=== PATIENT | female | born 1970 | race Caucasian/White ===

== ENCOUNTER 2021-04-28 15:09 | Emergency (ER) | payer MEDICAID ==
[2021-04-28] MEDS ORDERED: Sodium Chloride 0.9% 1,000 ML IV ONE (15:10)
[2021-04-28] MEDS ORDERED: methylPREDNISolone Sodium Succinate 125 MG/2 ML SDV IVPUSH ONE (15:10)
[2021-04-28] MEDS ORDERED: Famotidine 20 MG/2 ML SDV IVPUSH ONE (15:10)
[2021-04-28] MEDS ORDERED: methylPREDNISolone Sodium Succinate 125 MG/2 ML SDV IM ONE (15:15)
[2021-04-28] MEDS ORDERED: Famotidine 20 MG Tab PO ONE (15:15)
--- NOTE | 2021-04-28 16:34 | EDM.PDOC ---
ED HPI GENERAL MEDICAL PROBLEM - General Chief Complaint: Allergic Reaction Stated Complaint: ALLLERGIC REACTION Time Seen by Provider: 04/28/21 15:12 Source of Information: Reports: Patient, RN, RN Notes Reviewed History Limitations: Reports: No Limitations - History of Present Illness INITIAL COMMENTS - FREE TEXT/NARRATIVE: Susana is a 50 y/o female with a history of allergy to bee venom who presents to the ED via personal vehicle with for complaints of hives to arms, chest, abdomen, and thighs following a horse sting bite. The patient reports the bite happened approximately 35 minutes prior to arrival to this facility. She has taken Benadryl 100mg (which she chewed) and two doses of an EpiPen, 15 minutes apart. She attests to feeling trace tongue swelling, tingling to arms, and pruritus to her scattered hives. She denies vision changes, throat tightness, shortness of breath, wheezing, stridor, chest pain, palpitations, nausea, or vomiting. She feels she can move air in and out appropriately. 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 Musculoskeletal History: Reports: Fibromyalgia, Other (See Below) Other Musculoskeletal History: left bunion Neurological History: Reports: None Psychiatric History: Reports: None Endocrine/Metabolic History: Reports: None Hematologic History: Reports: None Immunologic History: Reports: None Oncologic (Cancer) History: Reports: None Dermatologic History: Reports: None - Infectious Disease History Infectious Disease History: Reports: Novel Coronavirus - Past Surgical History Head Surgeries/Procedures: Reports: None Female Surgical History: Reports: Hysterectomy, Ureteral Stent, Other (See Below) Other Female Surgeries/Procedures: states multiple surgies on right kidney Musculoskeletal Surgical History: Reports: Shoulder Surgery Social & Family History - Family History Family Medical History: Unobtainable - Tobacco Use Tobacco Use Status *Q: Unknown Ever Used Tobacco - Recreational Drug Use Recreational Drug Use: No ED ROS ALLERGIC REACTION - Review of Systems Review Of Systems: Comprehensive ROS is negative, except as noted in HPI. ED EXAM GENERAL NO PERIP PULSE - Physical Exam Exam: See Below Exam Limited By: No Limitations General Appearance: Alert, Anxious, Mild Distress (Incessant itching to hives on chest, abdomen, and thighs) Eye Exam: Bilateral Eye: EOMI, Normal Inspection, PERRL (3mm) Ears: Normal External Exam, Normal Canal, Hearing Grossly Normal, Normal TMs Nose: Normal Inspection, Normal Mucosa, No Blood Throat/Mouth: Normal Inspection, Normal Lips, Normal Teeth, Normal Gums, Normal Oropharynx, Normal Voice, No Airway Compromise, Other (Trace tongue swelling) Head: Atraumatic, Normocephalic. No: Facial Swelling Neck: Normal Inspection, Supple, Non-Tender, Full Range of Motion. No: Lymphadenopathy (L), Lymphadenopathy (R) Respiratory/Chest: No Respiratory Distress, Lungs Clear, Normal Breath Sounds, No Accessory Muscle Use, Chest Non-Tender, Other (Urticarial hives to anterior chest). No: Wheezing, Stridor, Accessory Muscle Use, Retractions, Prolonged Expiration Cardiovascular: Normal Peripheral Pulses, Regular Rate, Rhythm, No Edema, No Gallop, No JVD, No Murmur, No Rub GI/Abdominal: Normal Bowel Sounds, Soft, Non-Tender, No Distention, No Abnormal Bruit, No Mass, Pelvis Stable, Other (Urticarial hives to anterior abdomen) (Female) Exam: Deferred Rectal (Female) Exam: Deferred Back Exam: Normal Inspection, Full Range of Motion Extremities: Normal Range of Motion, Non-Tender, No Pedal Edema, Normal Capillary Refill, Other (Urticarial hives to bilateral arms and thighs). No: Arm Pain, Leg Pain Neurological: Alert, Oriented, CN II-XII Intact, Normal Cognition, Normal Gait, Normal Reflexes, No Motor/Sensory Deficits Psychiatric: Anxious Skin Exam: Warm, Dry, Intact, Rash (Urticarial hives to bilateral arms, chest, abdomen, and bilateral thighs) Course - Vital Signs Last Recorded V/S: Last Vital Signs Temp 97.8 F 04/28/21 15:10 Pulse 80 04/28/21 15:10 Resp 26 H 04/28/21 15:10 BP 141/78 H 04/28/21 15:10 Pulse Ox 98 04/28/21 15:10 - Orders/Labs/Meds Meds: Medications Discontinued Medications Generic Name Dose Route Start Last Admin Trade Name Bao PRN Reason Stop Dose Admin Famotidine 20 mg 04/28/21 15:10 Famotidine 20 Mg/2 Ml Sdv IVPUSH 04/28/21 15:11 ONETIME ONE Famotidine 20 mg 04/28/21 15:15 04/28/21 15:22 Famotidine 20 Mg Tab PO 04/28/21 15:16 20 mg ONETIME ONE Administration Sodium Chloride 1,000 mls @ 999 mls/hr 04/28/21 15:10 Normal Saline IV 04/28/21 16:10 .BOLUS ONE Methylprednisolone Sodium Succinate 125 mg 04/28/21 15:10 Methylprednisolone Sodium Succinate 125 Mg/2 Ml Sdv IVPUSH 04/28/21 15:11 ONETIME ONE Methylprednisolone Sodium Succinate 125 mg 04/28/21 15:15 04/28/21 15:21 Methylprednisolone Sodium Succinate 125 Mg/2 Ml Sdv IM 04/28/21 15:16 125 mg ONETIME ONE Administration - Re-Assessments/Exams Free Text/Narrative Re-Assessment/Exam: 04/28/21 Famotidine 20mg PO and Solu-Medrol 125mg IM administered. Patient verbalized improvement in pruritus following medications; significant reduction in hives noted. Will continue to monitor patient in ED to ensure resolution of symptoms without rebound effect. Patient continues to state symptoms have markedly improved. Discussed findings of examination with patient and . Discussed supportive cares for allergic reaction as well as red flag signs and symptoms which would warrant reevaluation. Patient and verbalized understanding and agreement with the plan of care. Departure - Departure Time of Disposition: 16:31 Disposition: Home, Self-Care 01 Condition: Good Clinical Impression: Allergic reaction Qualifiers: Encounter type: initial encounter Qualified Code(s): T78.40XA - Allergy, unspecified, initial encounter - Discharge Information *PRESCRIPTION DRUG MONITORING PROGRAM REVIEWED*: Not Applicable *COPY OF PRESCRIPTION DRUG MONITORING REPORT IN PATIENT ALONSO: Not Applicable Instructions: Allergies, Adult, [id number] Forms: ED Department Discharge Additional Instructions: 1.) Continue monitoring hives. 2.) You may take a dose of Benadryl 50mg tonight. 3.) You may also take a dose of Pepcid 20mg tomorrow, should hives persist. 4.) Drink plenty of water to stay hydrated; increase your typical intake with the allergic reaction. 5.) Return to the emergency department with any difficulty swallowing, throat tightness, tongue swelling, or increase in hives. Sepsis Event Note (ED) - Evaluation Sepsis Screening Result: No Definite Risk
== END 2021-04-28 16:39 | disposition home or self-care (01) ==
LOC: DL.ED 15:09
DX: T63.481A Toxic effect of venom of other arthropod, accidental (unintentional), initial encounter (principal); Z88.0 Allergy status to penicillin; Z88.1 Allergy status to other antibiotic agents; Z88.2 Allergy status to sulfonamides
CPT/HCPCS: 96372; 99283; A9270-GY; J2930